=== PATIENT | female | born 1975 | race African-American/Black ===

== ENCOUNTER 2024-10-17 15:48 | Emergency (ER) | payer MEDICAID ==
[~2024-10-17] VITALS: Ht 157.5 cm; Wt 89.8 kg
[2024-10-17 15:56] VITALS: BP 119/76; TEMP 37.6; O2SAT 99
[2024-10-17 15:59] VITALS: PULSE 114; RESP 16; O2SAT 100
== END 2024-10-17 18:35 | disposition left against medical advice (07) ==
LOC: ER 15:48
DX: R51.9 Headache, unspecified (principal); M54.9 Dorsalgia, unspecified; R50.9 Fever, unspecified; F31.9 Bipolar disorder, unspecified; Z98.890 Other specified postprocedural states; Z53.21 Procedure and treatment not carried out due to patient leaving prior to being seen by health care provider